=== PATIENT | female | born 1995 | race Hispanic/Latino ===

== ENCOUNTER 2016-11-08 19:23 | Emergency (ER) | payer OTHER ==
[~2016-11-08] VITALS: Ht 157.5 cm; Wt 68.2 kg
[~2016-11-08 19:23] MED LIST: IBUP-1827 PO; no meds
[2016-11-08 19:35] VITALS: BP 102/60; PULSE 66; RESP 16; O2SAT 94
--- NOTE | 2016-11-08 20:25 | ED.REPORT ---
HPI-Abd Pain F Under 39 Date of Service Nov 08, 2016 ED Provider: Sean Hills MD Pt is a 21 y/o female presenting to the ED c/o intermittent RUQ abdominal pain onset 3 days ago. The patient was sent here from with hopes of obtaining an US of her gallbladder. Her pain is worse with eating. She c/o associated nausea. Pt denies fever, chills, vomiting, CP, SOB, dysuria. She has had no previous abdominal surgeries. Nursing Notes Stated Complaint: STOMACH PAIN-SENT BY URGENT CARE Chief Complaint: Female Abdominal Pain Nursing Notes Reviewed: Yes Allergies: Coded Allergies: No Known Allergies (Verified , 03/05/13) Scheduled PRN Hydrocodone-Acetaminophen 5-325 mg (Hydrocodone-Acetaminophen 5-325 mg) 1 Each Tablet 1 TABLET PO Q4H PRN PRN For Pain Ibuprofen (Ibuprofen) 600 Mg Tablet 600 MG PO Q6H PRN PRN For Mild Pain Miscellaneous Medications ([no meds]) General Time Seen by MD: 20:16 Chief Complaint Abdominal pain Hx Obtained From: Patient Arrived By: Walk-in Sudden in Onset?: No Onset Occurred: 3 days ago Symptom Duration: Since onset Progression since Onset: Intermittent Location: : RUQ Quality: Painful Radiation: : Does not radiate Severity: Current: Moderate Severity: Maximum: Moderate Similar Sx Previous: No Past Medical History Past Medical History Denies Past Surgical History Denies Smoking History Never Smoker Social History Alcohol Use: Denies alcohol use Drug Use: Denies drug use Ambulatory Status Independent Review of Systems Constitutional: Denies: Chills, Fever Respiratory: Denies: Non-productive cough, Shortness of breath Cardiovascular: Denies: Chest pain, Dyspnea on exertion GI: Reports: Abdominal pain, Nausea, Denies: Diarrhea, Vomiting Female: Denies: Dysuria, Urinary frequency Complete sys rev & neg: except as marked. Physical Exam Initial Vital Signs Vital Signs (First) Date Time Temp Pulse Resp B/P Pulse Ox O2 Delivery O2 Flow Rate FiO2 11/08/16 19:35 36.5 66 16 102/60 94 Room Air Initial VS: Reviewed, Vital signs normal Head / Eyes: Atraumatic, Normocephalic, PERRL ENT: Mucous membranes moist, Conjunctiva normal, No scleral icterus Neck: Supple, Full range of motion Extremities: Vascular intact, Neuro intact, No swelling, No tenderness Skin: Warm, Dry, No cyanosis Neurologic: Alert, Oriented, Nonfocal Psychiatric: Mood/affect normal, Behavior normal, Normal thought content General/Constitutional: Awake, Alert, No acute distress, Well appearing, Cooperative, Not toxic appearing Respiratory / Chest: Atraumatic, Breath sounds NL, Breath sounds = bilat, No respiratory distress, No rales, No rhonchi, No wheezing, No retractions, No stridor, No chest tenderness, No chest wall deformity, No crepitus Abdomen: Atraumatic, Soft, No guarding, No rebound, No distention, No palpable mass Tenderness/Guarding/Rebound: Positive: Ariza's sign positive, Tender RUQ... ( Moderate) Back: Full range of motion, Painless range of motion Interpretation & Diagnostics Lab Results Interpretation Result Diagram: 11/08/16201211/08/16 2013 Test 11/08/16 20:13 11/08/16 20:24 White Blood Count 11.1th/mm3 (3.8-10.1) Red Blood Count 4.56mil/mm3 (3.90-5.20) Hemoglobin 12.9g/dL (12.0-15.6) Hematocrit 38.6% (35.0-46.0) Mean Corpuscular Volume 84.6fL (81-100) Mean Corpuscular Hemoglobin 28.3pg (27.0-35.0) Mean Corpuscular Hemoglobin Concent 33.4% (32.0-37.0) Red Cell Distribution Width 13.6% (12.3-15.4) Platelet Count 220bil/L (150-400) Neutrophils (%) (Auto) 64.7% (40-74) Lymphocytes (%) (Auto) 26.3% (14-46) Monocytes (%) (Auto) 6.9% (4-12) Eosinophils (%) (Auto) 1.5% (0-5) Basophils (%) (Auto) 0.4% (0-3) Sodium Level 135mEq/L (134-144) Potassium Level 4.1mEq/L (3.5-5.2) Chloride Level 98mEq/L (97-108) Carbon Dioxide Level 24mmol/L (18-29) Blood Urea Nitrogen 11mg/dL (6-20) Creatinine 0.53mg/dL (0.57-1.00) Estimat Glomerular Filtration Rate 207mL/min (>59) Glucose Level 88mg/dL (60-99) Calcium Level 9.2mg/dL (8.5-10.1) Magnesium Level 2.0mg/dL (1.6-2.6) Total Bilirubin 0.2mg/dL (0.0-1.2) Aspartate Amino Transf (AST/SGOT) 19U/L (0-50) Alanine Aminotransferase (ALT/SGPT) 20U/L (0-32) Alkaline Phosphatase 66U/L (25-150) Total Protein 7.6g/dL (6.4-8.4) Albumin 4.3g/dL (3.4-5.0) Lipase 27U/L (13-60) Hold Mckinley Top Tube Received (Received) Hold Urine Received (Received) Re-Eval/Medical Decision Med Decision/Clinical Course Patient is a healthy 21-year-old female presenting to the emergency department with several days of postprandial right upper quadrant abdominal discomfort. She was seen at urgent care and sent here due to concern for biliary colic. Upon arrival she is afebrile stable vital signs in no apparent distress. Firm palpation of the right upper quadrant produces mild abdominal discomfort. Laboratory studies notable as below: CBC: Leukocytosis of 11.1 otherwise unremarkable CMP: unremarkable, lipase within normal limits Upreg: neg Urine dip: no signs of UTI Overall presentation concerning for biliary colic. My suspicion for acute cholecystitis is relatively low given the intermittent nature of her pain, relatively benign abdominal examination, absence of fever and only very mild leukocytosis. There are no findings suggestive of acute surgical intra- abdominal process. Description of pain unconvincing for peptic ulcer disease. Patient was offered multiple her ultrasound and referral to surgery thereafter however she stated that she did not want to stay in the emergency department and preferred to follow up as an outpatient. Provided with primary care physician referral and she will call first thing tomorrow to arrange an appointment. She may get an ultrasound on an outpatient basis. I feel that this is appropriate. Follow-up and return precautions were reviewed in detail and she was discharged in good condition. Re-Evaluation/Progress : Time of Eval: 21:17 Re-Evaluation/Progress Note: Pt rechecked. She is requesting outpatient management of her likely gallbladder disease. Informed pt of plan for treatment. Pt understands and agrees with plan for treatment. F/U instructions and RTER warnings given. All questions addressed. Counseled Regarding: Diagnosis, Lab results, Need for follow-up, When/why to return to ED Discharge & Departure Primary Impression: RUQ abdominal pain Additional Impressions: Leukocytosis Leukocytosis type: unspecified Qualified Code: D72.829 - Elevated white blood cell count, unspecified Postprandial abdominal pain in right upper quadrant Disposition: Home Discharge Condition All VS Reviewed: Yes Condition: Stable Patient Instructions: Cholelithiasis (DC) Additional Instructions: Thank you for seeking care at the emergency room. It is difficult for us to make definitive diagnoses in the ED but we believe that you are experiencing gallstones. Your physical exam is consistent with gallbladder disease. Your labs were normal. Our primary goal today in the ED was to evaluate you for any life-threatening conditions. Your evaluation was reassuring. You have elected to receive outpatient treatment and imaging. Take Ibuprofen as needed for pain, 600 mg every 6 hours. You should follow-up with your primary doctor in the next week. Call the [facility] first thing tomorrow to set up an appointment. An ultrasound may be considered at that point. You should return to the ED immediately if you develop severe uncontrolled abdominal pain, fevers, vomiting, cough, shortness of breath, chest pain, lightheadedness, weakness or any other concerning signs or symptoms. Thank you for letting us partake in your care today. Referrals: [facility] Scribe Attestation Portions of this note were transcribed by Philippe Robertson. I, Dr. Hills personally performed the history, physical exam and medical decision-making; I reviewed and confirmed the accuracy of the information in the transcribed note. Signed by Maximiliano Bass, 11/08/16 - 2199 Sean Hills MD Nov 08, 2016 20:25 PHILIPPE ROBERTSON Nov 08, 2016 21:15
[2016-11-08 20:29] LABS: BASOPHILS % (AUTO) 0.4 % (0-3); EOSINOPHILS % (AUTO) 1.5 % (0-5); MONOCYTES % (AUTO) 6.9 % (4-12); Mean Corpuscular Hemoglobin 28.3 pg (27.0-35.0); Mean Corpuscular Volume 84.6 fL (81-100); NEUTROPHILS % (AUTO) 64.7 % (40-74); Platelet Count 220 bil/L (150-400)
[2016-11-08] MEDS ORDERED: HYDR-4003 PO (21:39)
[2016-11-08 22:06] VITALS: BP 118/72; PULSE 78; RESP 16; O2SAT 96
== END 2016-11-08 22:09 | disposition home or self-care (01) ==
LOC: SED 19:23
DX: R10.11 Right upper quadrant pain (principal); D72.829 Elevated white blood cell count, unspecified